=== PATIENT | female | born 1965 | race Asian ===

== ENCOUNTER 2019-05-06 15:08 | Emergency (ER) | payer BC ==
[2019-05-06 15:21] VITALS: BP 106/72
--- NOTE | 2019-05-06 15:50 | UC ---
- HPI Summary HPI Summary: 54 year old female, no PMH, presents with b/l sternal pain, worse with lying down/ breast spreading apart, palpation, and deep breaths. Patient denies increased exercises, trauma. no recent illnesses/ cough/ sneezing. Pain has been ongoing for ~ 4 months, worse over the past month. no treatment, no eval. Foreign 11/2018, negative per patient. no weight loss, ~ 3lb gain. no night sweats. - History of Current Complaint Hx Obtained From: Patient Breast Chief Complaint: Pain - near sternum b/l lower Onset/Duration: Started Weeks Ago Timing: Constant Breast Associated Signs/Symptoms: Negative - Allergy/Home Medications Allergies/Adverse Reactions: Allergies Allergy/AdvReac Type Severity Reaction Status Date / Time No Known Allergies Allergy Verified 05/06/19 15:21 PMH/Surg Hx/FS Hx/Imm Hx Previously Healthy: Yes - Surgical History Surgical History: Yes Surgery Procedure, Year, and Place: LUMP REMOVED FROM STOMACH - Family History Known Family History: Positive: Non-Contributory - Social History Alcohol Use: None Substance Use Type: None Smoking Status (MU): Never Smoked Tobacco Review of Systems All Other Systems Reviewed And Are Negative: Yes Constitutional: Positive: Negative Neurovascular: Positive: Negative Psychological: Positive: Negative Is Patient Immunocompromised?: No Physical Exam Triage Information Reviewed: Yes Appearance: Well-Appearing, No Pain Distress, Well-Nourished Vital Signs: Initial Vital Signs Temp 98.2 F 05/06/19 15:12 Pulse 81 05/06/19 15:12 Resp 16 05/06/19 15:12 BP 106/72 05/06/19 15:12 Pulse Ox 97 05/06/19 15:12 Vital Signs Reviewed: Yes Eyes: Positive: Conjunctiva Clear ENT: Positive: Hearing grossly normal Neck: Positive: Supple, Nontender, No Lymphadenopathy. Negative: Nuchal Rigidity, Enlarged Nodes @ Respiratory: Positive: Chest non-tender, Lungs clear, Normal breath sounds, No respiratory distress, No accessory muscle use. Negative: Crackles, Rhonchi, Stridor, Wheezing Cardiovascular: Positive: RRR, No Murmur, Pulses Normal Breast Pain Course/Dx - Course Course Of Treatment: costochondritis - Follow up with ophthamology within 2-3 days if no improvement - Oral antibiotics to help with swelling, possible infection - Erythromycin ointment topically to upper lash lid 3 times daily, right before bed - Warm, moist (should feel wet) compresses 6-10 times a day for ~ 10 minutes each time to help loosen "plug". - May D/C compresses, antibiotics/ compresses when symptom free x 24 hours. - Differential Diagnoses Differential Diagnosis/HQI/PQRI: Mastitis - Diagnoses Provider Diagnoses: Costochondritis Discharge ED - Sign-Out/Discharge Documenting (check all that apply): Patient Departure All imaging exams completed and their final reports reviewed: Yes - Discharge Plan Condition: Good Disposition: HOME Patient Education Materials: Costochondritis (ED) Referrals: Kyleigh Zee MD [Primary Care Provider] - Additional Instructions: - Follow up with ophthamology within 2-3 days if no improvement - Oral antibiotics to help with swelling, possible infection - Erythromycin ointment topically to upper lash lid 3 times daily, right before bed - Warm, moist (should feel wet) compresses 6-10 times a day for ~ 10 minutes each time to help loosen "plug". - May D/C compresses, antibiotics/ compresses when symptom free x 24 hours. What is costochondritis? Costochondritis is a condition that causes pain and tenderness in your chest. The pain happens in an area called the costosternal joints, where the ribs meet the breastbone (figure 1). The pain from costochondritis affects only a small area and does not get worse when you move around. What causes costochondritis?Most of the time, doctors don't know why people get costochondritis. But in some people, it seems to be caused by: -A blow to the chest -Heavy lifting or hard exercise -An illness that causes you to cough and sneeze What are the symptoms of costochondritis?The symptoms include: -Pain and tenderness in the chest The pain can be sharp, or it might be dull and gnawing -Pain when you take a deep breath -Pain when you cough -Trouble breathing Is there a test for costochondritis? No. There is no test. But your doctor or nurse should be able to tell if you have it by learning about your symptoms and doing an exam. Sometimes, he or she might do other tests to make sure you do not have a different problem. Is there anything I can do on my own to feel better? Yes. Some people feel better if they: -Do stretching exercises -Put a heating pad on the painful area a few times a day. How is costochondritis treated? Often, costochondritis goes away without treatment. [id number] medicines to ease pain include: -Pain-relieving creams that have capsaicin or salicylates in them -Pain-relieving pills such as acetaminophen (sample brand name: Tylenol) or ibuprofen (sample brand name: Advil) Technical Training Coordinator: Jessica Rainey S, ([id number]) Canvas Cutter Machine: JAYCOB (JAYCOB) Report Date: 05/06/2019 16:08:00 Report Status: Final ===== Start of Report Content Patient Name: MEEK DUCKWORTH Medical Record#: [id number] Ordering Physician: Janice MANNING Acct.#: [id number] : 1965 Age: 54 Sex: F Location: [facility] Exam Date: 05/06/19 1552 ADM Status: REG ER Order Information: CHEST PA LAT 2 VWS Accession Number: [id number] CPT: 30899 Indication: Lower sternal pain. 2 views of the chest including dual energy PA views demonstrates no mediastinal shift. Heart is of normal size and configuration. Lung leblanc are clear. IMPRESSION: No active cardiopulmonary disease is noted. <Electronically signed by Jessica Rainey MD in OV> 05/06/191603 Dictated By: Jessica Rainey MD Dictated Date/Time: 05/06/191603 Transcribed Date/Time: 05/06/191603 Copy to: CC:Kyleigh Zee MD; Janice MANNING; Tyson Mendez MD Imaging - [facility] - [facility] - [facility] [address] [address] ) ([phone]) ([phone]) End of Report Content - Billing Disposition and Condition Condition: GOOD Disposition: Home
== END 2019-05-06 16:49 | disposition home or self-care (01) ==
LOC: UCEAST 15:08
DX: M94.0 Chondrocostal junction syndrome [Tietze] (principal)
CPT/HCPCS: 71046; 99212; G0463

== ENCOUNTER 2022-01-31 16:16 | Inpatient (IN) ==
[2022-01-31] MEDS ORDERED: Iodixanol (CONTRAST) 320 MG/ML 100 ML SDV IV ONE (16:25)
[2022-01-31 16:56] LABS: ABS Lymphocytes 1.1 10^3/ul (1.0-4.8); ABS Monocytes 0.2 10^3/ul (0-0.8); ABS Neutrophils 1.6 10^3/ul (1.5-7.7); Eosinophil % 1.2 %; Hematocrit 39 % (35-47); Hemoglobin 12.9 g/dL (12.0-16.0); Lymphocyte % 38.1 %; Mean Corpuscular HGB Conc 33 g/dL (31-36); Mean Corpuscular Hemoglobin 31 pg (27-31); Mean Corpuscular Volume 93 fL (80-97); Mean Platelet Volume 8.6 fL (7.4-10.4); Platelet Count 214 10^3/uL (150-450); Red Blood Count 4.22 10^6 /uL (3.70-4.87); Red Cell Distribution Width 13 % (10-15); White Blood Count 2.9 10^3/uL (3.5-10.8)
[2022-01-31] MEDS ORDERED: LaCOSAMide VIAL 200 MG in NS 0.9% 50 ML 50 ML IV ONE (16:57)
[2022-01-31 17:09] LABS: Activated Partial Thrombo Time 32.6 seconds (26.0-38.0); INR 0.98 (0.89-1.11)
[2022-01-31 17:44] LABS: Albumin 4.9 g/dL (3.2-5.2); Albumin/Globulin Ratio 2.1 (1-3); Calcium 9.7 mg/dL (8.6-10.3); Globulin 2.3 g/dL (2-4); HDL Cholesterol 68.4 mg/dL; Potassium 3.8 mmol/L (3.5-5.0); Total Bilirubin 0.6 mg/dL (0.2-1.0); Total Protein 7.2 g/dL (6.4-8.9); eGFR CKD-EPI 71.7 (>60)
[2022-01-31 18:59] LABS: Urine Appearance Clear; Urine Bilirubin Negative (Negative); Urine Blood Negative (Negative); Urine Color Straw; Urine Glucose Negative (Negative); Urine Ketones Negative (Negative); Urine Nitrite Negative (Negative); Urine Protein Negative (Negative); Urine Specific Gravity 1.015 (1.005-1.030); Urine Urobilinogen 0.2 (Negative) (Negative)
[2022-01-31] MEDS ORDERED: levETIRAcetam 1000MG IVPREMIX 1,000 MG/100 ML BAG IVPB ONE (19:01)
[2022-01-31 20:57] LABS: Urine Benzodiazepine Screen Presumptive Positive (None Detect); Urine Cannabinoids Screen None Detected (None Detect); Urine Opiates Screen None Detected (None Detect)
[2022-01-31] MEDS ORDERED: Lorazepam PYXIS KEY PRN (20:57)
[2022-01-31] MEDS ORDERED: LORazepam 2 mg VIAL 1 ml IV PUSH PRN (20:57)
[2022-02-01 03:16] LABS: Magnesium 2.2 mg/dL (1.9-2.7); Phosphorus 3.6 mg/dL (2.5-5.0)
[2022-02-01 05:36] LABS: ABS Lymphocytes 1.3 10^3/ul (1.0-4.8); ABS Monocytes 0.2 10^3/ul (0-0.8); ABS Neutrophils 2.4 10^3/ul (1.5-7.7); Eosinophil % 0.9 %; Hematocrit 37 % (35-47); Hemoglobin 12.3 g/dL (12.0-16.0); Lymphocyte % 31.9 %; Mean Corpuscular HGB Conc 33 g/dL (31-36); Mean Corpuscular Hemoglobin 30 pg (27-31); Mean Corpuscular Volume 90 fL (80-97); Mean Platelet Volume 8.2 fL (7.4-10.4); Platelet Count 226 10^3/uL (150-450); Red Blood Count 4.11 10^6 /uL (3.70-4.87); Red Cell Distribution Width 13 % (10-15)
[2022-02-01 05:59] LABS: Albumin 4.3 g/dL (3.2-5.2); Albumin/Globulin Ratio 1.7 (1-3); Calcium 9.4 mg/dL (8.6-10.3); Globulin 2.5 g/dL (2-4); Potassium 3.9 mmol/L (3.5-5.0); Total Bilirubin 0.8 mg/dL (0.2-1.0); Total Protein 6.8 g/dL (6.4-8.9); eGFR CKD-EPI 99.1 (>60)
[2022-02-01 08:18] VITALS: BP 102/63
== END 2022-02-01 12:50 | disposition home or self-care (01) | DRG 53 ==
LOC: ED 16:16 → EDHOLD 21:16 → SUATTDRO 21:16 → EDHOLD 22:23 → MEDTELE 22:38
PROVIDERS: ADMIT Internal Medicine; ATTEND Internal Medicine